=== PATIENT | male | born 1950 | race Caucasian/White ===

== ENCOUNTER 2017-08-28 11:43 | Emergency (ER) | payer BC ==
[~2017-08-28] VITALS: Ht 182.9 cm; Wt 80.7 kg
[~2017-08-28 11:43] MED LIST: CATAFLAM50 MG PO; [UNRECOGNIZED DRUG - OTHER]
== END 2017-08-28 15:12 | disposition home or self-care (01) ==
LOC: ER 11:43
DX: K52.89 Other specified noninfective gastroenteritis and colitis (principal)

== ENCOUNTER 2018-09-15 13:42 | Emergency (ER) | payer BC, OTHER ==
[~2018-09-15] VITALS: Ht 182.9 cm; Wt 81.6 kg
== END 2018-09-15 20:26 | disposition home or self-care (01) ==
LOC: ER 13:42
DX: K52.9 Noninfective gastroenteritis and colitis, unspecified (principal)